=== PATIENT | male | born 2005 | race Two or more races ===

== ENCOUNTER 2024-08-16 09:26 | Emergency (ER) | payer OTHER ==
[~2024-08-16] VITALS: Ht 180.3 cm; Wt 80.3 kg
[2024-08-16] MEDS: methocarbamoL 500 MG TAB PO ONE (12:44)
[2024-08-16] MEDS: KETOROLAC 60MG 2ML VIAL IM ONE (12:45)
[2024-08-16] MEDS ORDERED: METH-1164 PO (13:34)
[2024-08-16 13:43] VITALS: BP 124/69; TEMP 97.2; O2SAT 99
== END 2024-08-16 13:47 | disposition home or self-care (01) ==
LOC: M ED 09:26
DX: M54.50 Low back pain, unspecified (principal)
CPT/HCPCS: 96372; 99283; J1885

== ENCOUNTER → 2025-02-17 | Outpatient (CLI) | payer OTHER ==
[~2025-02-17] MED LIST: METH-1164 PO
== END ==
LOC: M RAD 09:24
DX: M65.841 Other synovitis and tenosynovitis, right hand (principal); M67.431 Ganglion, right wrist